=== PATIENT | male | born 1995 | race American Indian/Alaskan Native ===

== ENCOUNTER 2017-03-12 16:28 | Emergency (ER) | payer OTHER ==
[2017-03-12 16:32] VITALS: BP 125/71
--- NOTE | 2017-03-12 18:17 | Emergency Department Report ---
Chief Complaint: Headache Stated Complaint: HEADACHES Time Seen by Provider: 03/12/17 18:01 - HPI History of Present Illness: Patient is a 21-year-old male whose presenting with left posterior neck discomfort for the past 3 days. Patient states he's had no recent injury however he has been lifting weights. He has a remote injury to the left back years ago he states as a job-related injury. Patient denies any fever or nuchal rigidity. Patient states it feels like a shocking pain that occurs at random ending goes away he is pain-free at this time. - Exam Vital Signs: Vital Signs 03/12/17 16:30 Temperature 98.7 F Pulse Rate 83 Respiratory 20 Rate Blood Pressure 125/71 O2 Sat by Pulse 97 Oximetry Physical Exam: Patient has a normal physical exam HEENT exam was knows no cervical lymphadenopathy neck exam supple with no tenderness redness swelling lung exam clear to auscultation no wheezes rales or rhonchi. Chest exam S1-S2 no murmurs gallops or rubs MSE screening note: Focused history and physical exam performed. Due to findings the following was ordered: ED Disposition for MSE Clinical Impression: Cervical strain, acute Disposition: Z-07 MED SCREENING EXAM-LEFT Is pt being admited?: No Does the pt Need Aspirin: No Condition: Stable Referrals: RYLEY MCDANIEL MD [Staff Physician] - 3-5 Days
== END 2017-03-12 18:29 | disposition left against medical advice (07) ==
LOC: ED 16:28
DX: R51 Headache (principal); Z53.21 Procedure and treatment not carried out due to patient leaving prior to being seen by health care provider
CPT/HCPCS: 99281

== ENCOUNTER 2017-11-24 17:36 | Emergency (ER) | payer OTHER ==
[2017-11-24 17:52] VITALS: BP 108/64
== END 2017-11-24 20:40 | disposition left against medical advice (07) ==
LOC: ED 17:36
DX: R51 Headache (principal); Z53.21 Procedure and treatment not carried out due to patient leaving prior to being seen by health care provider